=== PATIENT | female | born 1940 | race Caucasian/White ===

== ENCOUNTER 2019-09-05 17:02 | Inpatient (IN) | payer MEDICARE, BC ==
[2019-09-05] MEDS ORDERED: SODIUM CHLORIDE 0.9% 1,000 ML IV STA (17:35)
--- NOTE | 2019-09-05 17:39 | ED ---
Abdominal Pain HPI - General Chief Complaint: Abdominal Pain Stated Complaint: Jaundice Time Seen by Provider: 09/05/19 17:15 Source: patient, RN notes reviewed Mode of arrival: ambulatory Limitations: no limitations - History of Present Illness Initial Comments: This is a 79-year-old female presents emergency Department chief complaint of lower abdominal pain 3 days, jaundice. Patient states that essentially that she looks very yellow she noticed that her eyes were yellow, her skin. Patient denies any nausea vomiting denies any diarrhea but states that she's been constipated states it's narrow and beebe color. Patient states that she also noticed her urine has been very dark. She does not take any acetaminophen. Patient denies any fevers or chills no chest pain or shortness of breath. She does have a history of A. fib on Eliquis, metoprolol, diabetes on 3 medications and hypertension. Patient denies any prior abdominal surgeries. She states she was started on some new diabetic medication and which she is unsure what it is. Patient hasn't complains of dysuria no sick contacts. - Related Data Home Medications Medication Instructions Recorded Confirmed No Known Home Medications 09/05/19 09/05/19 Allergies Allergy/AdvReac Type Severity Reaction Status Date / Time Penicillins Allergy Unknown Verified 09/05/19 17:12 Childhood Review of Systems ROS Statement: Those systems with pertinent positive or pertinent negative responses have been documented in the HPI. ROS Other: All systems not noted in ROS Statement are negative. Past Medical History Past Medical History: Atrial Fibrillation, Diabetes Mellitus, Hyperlipidemia, Hypertension Additional Past Medical History / Comment(s): fluctuating sodium levels History of Any Multi-Drug Resistant Organisms: None Reported Past Surgical History: Tonsillectomy Additional Past Surgical History / Comment(s): cataracts, polyp removed from nose Past Psychological History: Anxiety Smoking Status: Never smoker Past Alcohol Use History: Rare Past Drug Use History: None Reported General Exam Limitations: no limitations General appearance: alert, in no apparent distress Head exam: Present: atraumatic, normocephalic, normal inspection Eye exam: Present: PERRL, EOMI, scleral icterus. Absent: normal appearance, conjunctival injection, periorbital swelling ENT exam: Present: mucous membranes moist. Absent: normal oropharynx (Yellowing under the tongue) Neck exam: Present: normal inspection, full ROM. Absent: tenderness, menin gismus, lymphadenopathy Respiratory exam: Present: normal lung sounds bilaterally. Absent: respiratory distress, wheezes, rales, rhonchi, stridor Cardiovascular Exam: Present: regular rate, normal rhythm, normal heart sounds. Absent: systolic murmur, diastolic murmur, rubs, gallop, clicks GI/Abdominal exam: Present: soft, tenderness (Minimal nonlocalized), normal bowel sounds. Absent: distended, guarding, rebound, rigid Neurological exam: Present: alert, oriented X3, CN II-XII intact Skin exam: Present: other ( icterus) Course Vital Signs 09/05/19 09/05/19 17:04 19:26 Temperature 98 F Pulse Rate 81 93 Respiratory 18 18 Rate Blood Pressure 185/78 191/97 O2 Sat by Pulse 98 97 Oximetry Medical Decision Making - Medical Decision Making 79-year-old female presents emergency from for jaundice, abdominal pain. Patient's found to have bilirubin of 6.8, mild transaminitis. Ultrasound was concerning for mass recommended CT. CT obtained shows evidence of suspicious pancreatic mass,, bile duct obstruction. I did discuss case with Dr. Jade and Dr. Grayson. Patient will be admitted for GI, surgery consult. - Lab Data Result diagrams: 09/05/19 18:15 09/05/19 18:15 Lab Results 09/05/19 09/05/19 09/05/19 Range/Units 18:15 18:15 18:15 WBC 3.7 L (3.8-10.6) k/uL RBC 3.82 (3.80-5.40) m/uL Hgb 11.7 (11.4-16.0) gm/dL Hct 36.4 (34.0-46.0) % MCV 95.4 (80.0-100.0) fL MCH 30.7 (25.0-35.0) pg MCHC 32.2 (31.0-37.0) g/dL RDW 13.8 (11.5-15.5) % Plt Count 122 L (150-450) k/uL Neutrophils % 68 % Lymphocytes % 22 % Monocytes % 7 % Eosinophils % 2 % Basophils % 1 % Neutrophils # 2.5 (1.3-7.7) k/uL Lymphocytes # 0.8 L (1.0-4.8) k/uL Monocytes # 0.3 (0-1.0) k/uL Eosinophils # 0.1 (0-0.7) k/uL Basophils # 0.0 (0-0.2) k/uL PT 12.1 H (9.0-12.0) sec INR 1.2 H (<1.2) APTT 24.8 (22.0-30.0) sec Sodium 134 L (137-145) mmol/L Potassium 3.4 L (3.5-5.1) mmol/L Chloride 101 (98-107) mmol/L Carbon Dioxide 25 (22-30) mmol/L Anion Gap 8 mmol/L BUN 14 (7-17) mg/dL Creatinine 0.65 (0.52-1.04) mg/dL Est GFR (CKD-EPI)AfAm >90 (>60 ml/min/1.73 sqM) Est GFR (CKD-EPI)NonAf 84 (>60 ml/min/1.73 sqM) Glucose 190 H (74-99) mg/dL Plasma Lactic Acid Tonny (0.7-2.0) mmol/L Calcium 9.1 (8.4-10.2) mg/dL Total Bilirubin 6.8 H (0.2-1.3) mg/dL AST 107 H (14-36) U/L ALT 116 H (4-34) U/L Alkaline Phosphatase 130 H (38-126) U/L Total Protein 7.8 (6.3-8.2) g/dL Albumin 3.9 (3.5-5.0) g/dL Amylase 68 (30-110) U/L Lipase 502 H (23-300) U/L Hepatitis A IgM Ab 09/05/19 09/05/19 Range/Units 18:15 18:28 WBC (3.8-10.6) k/uL RBC (3.80-5.40) m/uL Hgb (11.4-16.0) gm/dL Hct (34.0-46.0) % MCV (80.0-100.0) fL MCH (25.0-35.0) pg MCHC (31.0-37.0) g/dL RDW (11.5-15.5) % Plt Count (150-450) k/uL Neutrophils % % Lymphocytes % % Monocytes % % Eosinophils % % Basophils % % Neutrophils # (1.3-7.7) k/uL Lymphocytes # (1.0-4.8) k/uL Monocytes # (0-1.0) k/uL Eosinophils # (0-0.7) k/uL Basophils # (0-0.2) k/uL PT (9.0-12.0) sec INR (<1.2) APTT (22.0-30.0) sec Sodium (137-145) mmol/L Potassium (3.5-5.1) mmol/L Chloride (98-107) mmol/L Carbon Dioxide (22-30) mmol/L Anion Gap mmol/L BUN (7-17) mg/dL Creatinine (0.52-1.04) mg/dL Est GFR (CKD-EPI)AfAm (>60 ml/min/1.73 sqM) Est GFR (CKD-EPI)NonAf (>60 ml/min/1.73 sqM) Glucose (74-99) mg/dL Plasma Lactic Acid Tonny 1.3 (0.7-2.0) mmol/L Calcium (8.4-10.2) mg/dL Total Bilirubin (0.2-1.3) mg/dL AST (14-36) U/L ALT (4-34) U/L Alkaline Phosphatase (38-126) U/L Total Protein (6.3-8.2) g/dL Albumin (3.5-5.0) g/dL Amylase (30-110) U/L Lipase (23-300) U/L Hepatitis A IgM Ab NEGATIVE Disposition Clinical Impression: Pancreatic mass, Hyperbilirubinemia, Transaminitis Disposition: ADMITTED IP TO THIS HOSP Condition: Serious Referrals: Alis Lawler MD [Primary Care Provider] - 1-2 days
[2019-09-05 18:33] LABS: Basophils % (A) 1 %; Eosinophils # (A) 0.1 k/uL (0-0.7); Eosinophils % (A) 2 %; HCT 36.4 % (34.0-46.0); HGB 11.7 gm/dL (11.4-16.0); Lymphocytes # (A) 0.8 k/uL (1.0-4.8); Lymphocytes % (A) 22 %; MCH 30.7 pg (25.0-35.0); MCHC 32.2 g/dL (31.0-37.0); MCV 95.4 fL (80.0-100.0); Mean Platelet Volume 7.8; Monocytes # (A) 0.3 k/uL (0-1.0); Monocytes % (A) 7 %; Neutrophils # (A) 2.5 k/uL (1.3-7.7); Neutrophils % (A) 68 %; Platelet Count 122 k/uL (150-450); RBC 3.82 m/uL (3.80-5.40); RDW 13.8 % (11.5-15.5); WBC 3.7 k/uL (3.8-10.6)
[2019-09-05 18:41] LABS: ALT 116 U/L (4-34); AST 107 U/L (14-36); African American GFR (CKD) >90 (>60 ml/min/1.73 sqM); Albumin 3.9 g/dL (3.5-5.0); Alkaline Phosphatase 130 U/L (38-126); Amylase 68 U/L (30-110); Anion Gap 8 mmol/L; Blood Urea Nitrogen 14 mg/dL (7-17); Calcium 9.1 mg/dL (8.4-10.2); Carbon Dioxide 25 mmol/L (22-30); Chloride 101 mmol/L (98-107); Glucose 190 mg/dL (74-99); Non-African American GFR(CKD) 84 (>60 ml/min/1.73 sqM); Potassium 3.4 mmol/L (3.5-5.1); Sodium 134 mmol/L (137-145); Total Bilirubin 6.8 mg/dL (0.2-1.3); Total Protein 7.8 g/dL (6.3-8.2)
[2019-09-05 18:42] LABS: INR 1.2 (<1.2); Partial Thromboplastin Time 24.8 sec (22.0-30.0); Prothrombin Time 12.1 sec (9.0-12.0)
[2019-09-05 19:16] LABS: Hepatitis A Antibody IgM NEGATIVE
--- NOTE | 2019-09-05 19:29 | US ---
EXAMINATION TYPE: US liver DATE OF EXAM: 09/05/2019 COMPARISON: NONE CLINICAL HISTORY: Abdominal pain, jaundice. Abdominal pain x couple days. Jaundice. Hx HTN, Hyperlipi demia, diabetes mellitus. EXAM MEASUREMENTS: Liver Length: 18.8 cm Gallbladder Wall: 0.25 cm CBD: 1.85 cm Right Kidney: 12.2 x 5.8 x 4.9 cm Pancreas: Indistinct hypoechoic area is seen adjacent to pancreas posteriorly measurin.5 x 3.5 x 2.8 cm. Area appears to be slightly inferior to pancreas. Liver: Measures slightly enlarged. Gallbladder: Appears distended measuring 13.8 cm in length and 5.2 cm in width. Internal echoes are seen within the gallbladder. Evidence for sonographic Muller's sign: No CBD: Appears dilated. Right Kidney: Measures upper limits of normal versus slightly enlarged. Possible column of Geoff, I soechoic to slightly hyperechoic area seen measurin.1 x 2.2 x 2.0 cm. Visualized portion of pancreas is heterogeneous without mass or ductal dilatation. Visualized liver i s heterogeneously hyperechoic with moderate intrahepatic ductal dilatation. Evaluation for focal mass es suboptimal due to the heterogeneity. Increased cortical echogenicity right kidney without hydronep hrosis. Gallbladder has distended margins with small stones and/or gallbladder sludge filling the lum en. No abnormal surrounding fluid or wall thickening. Moderate to severe dilated common bile duct at 1.9 cm. Last few images show suspicious 4.5 x 2.8 x 3.5 cm hypoechoic mass immediately posterior to v ertical probable vascular structure in region of uncinate process of pancreas suspect abnormal mass o r adenopathy. No ascites seen on images saved. IMPRESSION: Moderate to severe intrahepatic and extra hepatic biliary dilatation suspect obstructing mass near duodenal ampulla. No definitive pancreatic ductal dilatation however. Advise contrast enhan garry CT to better evaluate and characterize.
--- NOTE | 2019-09-05 20:17 | CT ---
EXAMINATION TYPE: CT abdomen pelvis w con DATE OF EXAM: 09/05/2019 COMPARISON: None HISTORY: Diarrhea, abdominal pain and jaundice. CT DLP: 721.3 mGycm Automated exposure control for dose reduction was used. CONTRAST: Performed with IV Contrast, patient injected with 100 mL of Isovue 300. There is coarse interstitial density at the lung bases consistent with scarring and subsegmental atel ectasis. There is small hiatal hernia. Heart is enlarged. There is no pericardial effusion. There is small right pleural effusion. Gallbladder is moderately dilated. Gallbladder measures 5.3 cm in diameter. Spleen is intact. There i s a dilated common bile duct measures up to 1.5 cm. There is a 3 cm low-density area in the posterior aspect of the body of the pancreas suggestive of a mass. There is no adrenal mass. The pancreatic duct is not dilated. There is normal contrast opacification of the kidneys. There is no hydronephrosis. Ureters are not dilated. There is 1 cm cyst posterior lef t kidney. There is no retroperitoneal adenopathy. Bladder distends smoothly. There is no inguinal her emil. There is no free fluid in the pelvis. There is no sign of a bowel obstruction. Uterus appears no rmal. Lumbar spine is intact. There is no compression fracture. There is degenerative disc narrowing at L5-S1. I see no focal bone destruction. There is no mesenteric edema. There is no ascites or free air. IMPRESSION: Moderately severe dilation of the gallbladder with mild ectasia of the common bile duct and the intra hepatic bile ducts. No gallbladder wall thickening. Low density mass at the posterior aspect of the b mercy of the pancreas suspicious for tumor. Obstruction of the distal common bile duct is suspected. Fibrotic changes and subsegmental atelectasis at the lung bases. Atherosclerotic vascular disease.
[2019-09-05] MEDS ORDERED: HYDROmorphone 0.5 MG/0.5 ML SYRINGE IVP PRN (20:32)
[2019-09-05] MEDS ORDERED: NALOXONE 0.4 MG/ML 1 ML VIAL IV PRN (20:32)
[2019-09-05] MEDS ORDERED: ONDANSETRON 4 MG/2 ML VIAL IVP PRN (20:32)
[2019-09-05 21:40] LABS: Appearance,Urine Clear (Clear); Bilirubin,Urine Negative (Negative); Blood,Urine Negative (Negative); Color,Urine Yellow; Glucose,Urine (UA) Trace (Negative); Ketones,Urine Negative (Negative); Leukocyte Esterase,Urine Trace (Negative); Mucus,Urine Rare /hpf; Nitrite,Urine Negative (Negative); PH, Urine 5.5 (5.0-8.0); Protein,Urine Negative (Negative); RBC,Urine <1 /hpf (0-5); Specific Gravity,Urine 1.016 (1.001-1.035); Squamous Epithelial Cell,Urine 1 /hpf (0-4); Urobilinogen,Urine <2.0 mg/dL (<2.0); WBC,Urine 3 /hpf (0-5)
[2019-09-05 22:12] LABS: Glucose,Whole Blood 129 mg/dL (75-99)
[2019-09-05] MEDS: INSULIN ASPART (NovoLOG) 100 UNIT/ML VIAL SQ SCH (22:14)
[2019-09-05 23:49] LABS: Hepatitis B Core IgM Non-Reactive (Non-Reactive); Hepatitis B Surface Antigen Non-Reactive (Non-Reactive); Hepatitis C IgG Antibody Reactive (Non-Reactive)
[2019-09-06] MEDS: amLODIPine 10 MG TAB PO SCH (05:52)
[2019-09-06] MEDS: LEVOTHYROXINE 50 MCG TAB PO SCH (05:52)
[2019-09-06] MEDS: LISINOPRIL 20 MG TAB PO SCH (05:52)
[2019-09-06 07:16] LABS: Glucose,Whole Blood 164 mg/dL (75-99)
[2019-09-06] MEDS: INSULIN ASPART (NovoLOG) 100 UNIT/ML VIAL SQ SCH ×4 (08:47→21:04)
[2019-09-06] MEDS: PIOGLITAZONE 15 MG TAB PO SCH (08:48)
[2019-09-06] MEDS: METOPROLOL SUCCINATE (ER) 25 MG TAB.ER.24H PO SCH (08:48)
[2019-09-06] MEDS: glipiZIDE 5 MG TAB PO SCH ×2 (08:48→21:15)
[2019-09-06] MEDS: LINAGLIPTIN 5 MG TABLET PO SCH (08:50)
[2019-09-06] MEDS: POTASSIUM CHLORIDE ER 20 MEQ TAB.ER PO SCH (08:50)
[2019-09-06] MEDS: LORATADINE 10 MG TAB PO SCH (08:50)
[2019-09-06] MEDS: FLUTICASONE 50MCG/SPRAY NASAL 16GM EA NOSTRIL SCH (08:52)
[2019-09-06] MEDS ORDERED: APIXABAN 5 MG TAB PO SCH (09:00)
[2019-09-06] MEDS ORDERED: HYDROCORTISONE 2.5% RECTAL CREAM 30 GM TUBE RECTAL PRN (09:00)
[2019-09-06 11:09] LABS: Glucose,Whole Blood 225 mg/dL (75-99)
[2019-09-06] MEDS: ALPRAZolam 0.5 MG TAB PO PRN ×2 (12:51→21:15)
--- NOTE | 2019-09-06 13:29 | P.GSCN ---
History of Present Illness Consult date: 09/06/19 Reason for Consult: Pancreatic mass Requesting physician: Bravo Saha History of present illness: CHIEF COMPLAINT: Pancreatic mass HISTORY OF PRESENT ILLNESS: 79-year-old female who presented to the emergency room with the chief complaint of abdominal pain and jaundice. Patient had a computed tomography scan performed revealing pancreatic mass. Hence general surgery was consulted for further evaluation. PAST MEDICAL HISTORY: See list. PAST SURGICAL HISTORY: See list. SOCIAL HISTORY: No illicit drug use. REVIEW OF SYSTEMS: CONSTITUTIONAL: Denies fever or chills. HEENT: Denies blurred vision, vision changes, or eye pain. Denies hemoptysis CARDIOVASCULAR: Denies chest pain or pressure. RESPIRATORY: No shortness of breath. GASTROINTESTINAL: Refer to HPI for pertinent findings HEMATOLOGIC: Denies bleeding disorders. Reports dark urine. GENITOURINARY: Denies any blood in urine. SKIN: Denies pruitis. Denies rash. PHYSICAL EXAM: VITAL SIGNS: Reviewed. GENERAL: Well-developed in no acute distress. HEENT: No sclera icterus. Extraocular movements grossly intact. Moist buccal mucosa. Head is atraumatic, normocephalic. ABDOMEN: Soft. Nondistended. Mild pain upon palpation of right upper quadrant NEUROLOGIC: Alert and oriented. Cranial nerves II through XII grossly intact. LABORATORY DATA: WBC 3.7. Hemoglobin 11.7. Platelet count 122. Sodium 134. Potassium 3.4. Bilirubin 6.7. AST 107. ALT 116. Alkaline phosphatase 130. Amylase 60. Lipase 502. IMAGING: CT abdomen and pelvis: Moderately diffuse dilation of the gallbladder with mild ectasia of the common bile duct and intrahepatic bile duct. No gallbladder wall thickening. Low density mass at the posterior aspect of the body of the pancreas suspicious for tumor. Obstruction of the distal common bile duct is suspected ASSESSMENT: 1. Pancreatic mass 2. Obstructive jaundice PLAN: GI on consult. Await recommendations. Anticipate possible ERCP with stent placement No surgical intervention recommended at this facility Recommend further workup by a pancreatic specialist at a tertiary care center Nurse practitioner note has been reviewed by physician. Signing provider agrees with the documented findings, assessment, and plan of care. Past Medical History Past Medical History: Atrial Fibrillation, Diabetes Mellitus, Hyperlipidemia, Hypertension Additional Past Medical History / Comment(s): fluctuating sodium levels History of Any Multi-Drug Resistant Organisms: None Reported Past Surgical History: Tonsillectomy Additional Past Surgical History / Comment(s): cataracts left eye only, polyp removed from nose Past Anesthesia/Blood Transfusion Reactions: No Reported Reaction Past Psychological History: Anxiety Smoking Status: Never smoker Past Alcohol Use History: Rare Past Drug Use History: None Reported - Past Family History Mother Family Medical History: Myocardial Infarction ([place]) Brother(s) Additional Family Medical History / Comment(s): dies of lung cancer 2 brothers Medications and Allergies Home Medications Medication Instructions Recorded Confirmed Type ALPRAZolam [Xanax] 0.5 mg PO Q8H PRN 09/05/19 09/05/19 History Apixaban [Eliquis] 5 mg PO BID 09/05/19 09/05/19 History Atenolol [Tenormin] 50 mg PO DAILY 09/05/19 09/05/19 History Fluticasone Nasal Alsey [Flonase 2 sprays EA NOSTRIL DAILY 09/05/19 09/05/19 History Nasal Alsey] Hydrocortisone Pr Cream 1 applic RECTAL TID PRN 09/05/19 09/05/19 History [Proctosol-Hc 2.5%] Levothyroxine Sodium [Synthroid] 50 mcg PO DAILY 09/05/19 09/05/19 History Lisinopril 40 mg PO DAILY 09/05/19 09/05/19 History Loratadine [Claritin] 10 mg PO DAILY 09/05/19 09/05/19 History Metoprolol Succinate (ER) [Toprol 12.5 mg PO DAILY 09/05/19 09/05/19 History Xl] Pioglitazone [Actos] 15 mg PO DAILY 09/05/19 09/05/19 History Potassium Chloride ER [K-Dur 20] 20 meq PO DAILY 09/05/19 09/05/19 History amLODIPine [Norvasc] 10 mg PO DAILY 09/05/19 09/05/19 History glipiZIDE XL [Glucotrol Xl] 10 mg PO DAILY 09/05/19 09/05/19 History sitaGLIPtin [Januvia] 100 mg PO DAILY 09/05/19 09/05/19 History Allergies Allergy/AdvReac Type Severity Reaction Status Date / Time Penicillins Allergy Unknown Verified 09/05/19 22:16 Childhood Surgical - Exam Vital Signs Temp Pulse Resp BP Pulse Ox 98 F 81 18 185/78 98 09/05/19 17:04 09/05/19 17:04 09/05/19 17:04 09/05/19 17:04 09/05/19 17:04 Results - Labs 09/05/19 18:15 09/05/19 18:15 Abnormal Lab Results - Last 24 Hours (Table) 09/05/19 09/05/19 09/05/19 Range/Units 18:15 18:15 18:15 WBC 3.7 L (3.8-10.6) k/uL Plt Count 122 L (150-450) k/uL Lymphocytes # 0.8 L (1.0-4.8) k/uL PT 12.1 H (9.0-12.0) sec INR 1.2 H (<1.2) Sodium 134 L (137-145) mmol/L Potassium 3.4 L (3.5-5.1) mmol/L Glucose 190 H (74-99) mg/dL POC Glucose (mg/dL) (75-99) mg/dL Total Bilirubin 6.8 H (0.2-1.3) mg/dL AST 107 H (14-36) U/L ALT 116 H (4-34) U/L Alkaline Phosphatase 130 H (38-126) U/L Lipase 502 H (23-300) U/L Urine Glucose (UA) (Negative) Ur Leukocyte Esterase (Negative) Urine Mucus (None) /hpf Hep C IgG Ab (Non-Reactive) 09/05/19 09/05/19 09/05/19 Range/Units 18:15 21:10 22:10 WBC (3.8-10.6) k/uL Plt Count (150-450) k/uL Lymphocytes # (1.0-4.8) k/uL PT (9.0-12.0) sec INR (<1.2) Sodium (137-145) mmol/L Potassium (3.5-5.1) mmol/L Glucose (74-99) mg/dL POC Glucose (mg/dL) 129 H (75-99) mg/dL Total Bilirubin (0.2-1.3) mg/dL AST (14-36) U/L ALT (4-34) U/L Alkaline Phosphatase (38-126) U/L Lipase (23-300) U/L Urine Glucose (UA) Trace H (Negative) Ur Leukocyte Esterase Trace H (Negative) Urine Mucus Rare H (None) /hpf Hep C IgG Ab Reactive H (Non-Reactive) 09/06/19 09/06/19 Range/Units 07:13 11:06 WBC (3.8-10.6) k/uL Plt Count (150-450) k/uL Lymphocytes # (1.0-4.8) k/uL PT (9.0-12.0) sec INR (<1.2) Sodium (137-145) mmol/L Potassium (3.5-5.1) mmol/L Glucose (74-99) mg/dL POC Glucose (mg/dL) 164 H 225 H (75-99) mg/dL Total Bilirubin (0.2-1.3) mg/dL AST (14-36) U/L ALT (4-34) U/L Alkaline Phosphatase (38-126) U/L Lipase (23-300) U/L Urine Glucose (UA) (Negative) Ur Leukocyte Esterase (Negative) Urine Mucus (None) /hpf Hep C IgG Ab (Non-Reactive) Diabetes panel 09/05/19 Range/Units 18:15 Sodium 134 L (137-145) mmol/L Potassium 3.4 L (3.5-5.1) mmol/L Chloride 101 (98-107) mmol/L Carbon Dioxide 25 (22-30) mmol/L BUN 14 (7-17) mg/dL Creatinine 0.65 (0.52-1.04) mg/dL Glucose 190 H (74-99) mg/dL Calcium 9.1 (8.4-10.2) mg/dL AST 107 H (14-36) U/L ALT 116 H (4-34) U/L Alkaline Phosphatase 130 H (38-126) U/L Total Protein 7.8 (6.3-8.2) g/dL Albumin 3.9 (3.5-5.0) g/dL Calcium panel 09/05/19 Range/Units 18:15 Calcium 9.1 (8.4-10.2) mg/dL Albumin 3.9 (3.5-5.0) g/dL Pituitary panel 09/05/19 Range/Units 18:15 Sodium 134 L (137-145) mmol/L Potassium 3.4 L (3.5-5.1) mmol/L Chloride 101 (98-107) mmol/L Carbon Dioxide 25 (22-30) mmol/L BUN 14 (7-17) mg/dL Creatinine 0.65 (0.52-1.04) mg/dL Glucose 190 H (74-99) mg/dL Calcium 9.1 (8.4-10.2) mg/dL Adrenal panel 09/05/19 Range/Units 18:15 Sodium 134 L (137-145) mmol/L Potassium 3.4 L (3.5-5.1) mmol/L Chloride 101 (98-107) mmol/L Carbon Dioxide 25 (22-30) mmol/L BUN 14 (7-17) mg/dL Creatinine 0.65 (0.52-1.04) mg/dL Glucose 190 H (74-99) mg/dL Calcium 9.1 (8.4-10.2) mg/dL Total Bilirubin 6.8 H (0.2-1.3) mg/dL AST 107 H (14-36) U/L ALT 116 H (4-34) U/L Alkaline Phosphatase 130 H (38-126) U/L Total Protein 7.8 (6.3-8.2) g/dL Albumin 3.9 (3.5-5.0) g/dL
[2019-09-06 17:45] LABS: Glucose,Whole Blood 148 mg/dL (75-99)
[2019-09-06 20:27] LABS: Glucose,Whole Blood 118 mg/dL (75-99)
--- NOTE | 2019-09-06 23:07 | CONS ---
CONSULTATION DATE OF DICTATION: 09/06/2019 REASON FOR CONSULTATION: Obstructive jaundice. HISTORY OF PRESENT ILLNESS: The patient is an 79-year-old pleasant white female who was admitted to the hospital yesterday when she noted yellowish discoloration of her skin for the last 2 weeks' duration. In fact, her daughter noticed this and brought her to the emergency room. She also noted her urine to be dark and stools clear-colored for the last one-week duration. She denies any abdominal pain, reports no nausea, vomiting. She lost about 12 pounds in the last 2 weeks' duration. She reports no abdominal pain. No nausea, vomiting. No rectal bleeding or melena. PAST MEDICAL HISTORY: Her past medical history is significant for hypertension, hyperlipidemia, diabetes mellitus, history of atrial fibrillation, on Eliquis. PAST SURGICAL HISTORY: Tonsillectomy, cataract and nasal polyp removal. SOCIAL HISTORY: No smoking or alcohol use. FAMILY HISTORY: Unremarkable. REVIEW OF SYSTEMS: CARDIOPULMONARY: She denies any chest pain or shortness of breath. GENITOURINARY: No dysuria or hematuria. MUSCULOSKELETAL: Unremarkable. SKIN: Unremarkable other than yellowish discoloration ENDOCRINE: Unremarkable. PSYCHIATRIC: Unremarkable. NEUROLOGY: Unremarkable. ENT/VISION: Unremarkable. CONSTITUTIONAL: Weight loss of 12 pounds. No fever, chills, night sweats. MEDICATIONS: Medications at home include Januvia, Glucotrol, Norvasc, K-Dur, Actos, Claritin, Toprol, Synthroid, Lisinopril, Flonase, Tenormin, Eliquis and Xanax. PHYSICAL EXAMINATION: She appears comfortable. No apparent distress. Vital signs are stable. Blood pressure 143/73, pulse rate 82 and afebrile. HEENT examination unremarkable. Conjunctivae pink. Sclerae anicteric. Oral cavity no lesions. NECK: No JVD or lymph node enlargement. CHEST: Clear to auscultation. HEART: Regular rate and rhythm. ABDOMEN: Soft. Bowel sounds are positive. No organomegaly. EXTREMITIES: No pedal edema. SKIN: No rashes. NEUROLOGIC: Alert and oriented x3. No focal deficits. LABS/IMAGING: Labs from yesterday show WBC 3.7, hemoglobin 11.5, platelets 152,000. INR is 1.2. T- bilirubin 6.8. AST and ALT are 107 and 116, respectively. Alkaline phosphatase 130. Lipase is 502. Hepatitis serologies showed a hep C IgG antibody positive. COVID-[address] of the abdomen and pelvis done in the emergency room showed dilated common bile duct measuring 1.5 cm in diameter, moderate dilation of the gallbladder, and there was a 3 cm low density area in the posterior aspect of the body of the pancreas suggestive of a mass. IMPRESSION: 1. This is a lady who presented to the hospital with painless jaundice with a bilirubin of 6 and elevated alkaline phosphatase and a CT scan showing a 3 cm mass in the posterior aspect of the body of the pancreas with a dilated common bile duct. 2. History of atrial fibrillation, on Eliquis. 3. History of diabetes mellitus. 4. Positive hepatitis C antibody. Will request HCV RNA by PCR. 5. History of hypertension. 6. Hypothyroidism. RECOMMENDATIONS: 1. Hold Eliquis. 2. Will proceed with an ERCP tomorrow. I discussed with the patient as well as her daughter risks, benefits and complications of the procedure, and she is agreeable to it. 3. Repeat labs in the morning. 4. Obtain HCV RNA by PCR to evaluate positive hepatitis C antibody and we will follow with you closely. Thank you for this consultation. MMODL / IJN: [id number] /
[2019-09-07] MEDS: LEVOTHYROXINE 50 MCG TAB PO SCH (05:53)
[2019-09-07] MEDS: amLODIPine 10 MG TAB PO SCH (05:53)
[2019-09-07 07:08] LABS: Glucose,Whole Blood 135 mg/dL (75-99)
[2019-09-07] MEDS: PIOGLITAZONE 15 MG TAB PO SCH (08:10)
[2019-09-07] MEDS: LISINOPRIL 20 MG TAB PO SCH (08:11)
[2019-09-07] MEDS: LORATADINE 10 MG TAB PO SCH (08:11)
[2019-09-07] MEDS: LINAGLIPTIN 5 MG TABLET PO SCH (08:11)
[2019-09-07] MEDS: POTASSIUM CHLORIDE ER 20 MEQ TAB.ER PO SCH (08:11)
[2019-09-07] MEDS: METOPROLOL SUCCINATE (ER) 25 MG TAB.ER.24H PO SCH (08:11)
[2019-09-07] MEDS: INSULIN ASPART (NovoLOG) 100 UNIT/ML VIAL SQ SCH ×4 (08:13→21:32)
[2019-09-07] MEDS: FLUTICASONE 50MCG/SPRAY NASAL 16GM EA NOSTRIL SCH (08:15)
[2019-09-07] MEDS: glipiZIDE 5 MG TAB PO SCH ×2 (08:15→21:35)
[2019-09-07] MEDS ORDERED: METOPROLOL TARTRATE 12.5 MG TAB PO STA (09:56)
--- NOTE | 2019-09-07 09:58 | P.HPIM ---
History of Present Illness H&P Date: 09/06/19 Chief Complaint: Jaundiced History of presenting complaint: This is a very pleasant [address] Jelly Lawler. Chronic stable medical conditions include atrial fibrillation, diabetes, hypertension, hyperlipidemia and anxiety. Patient noticed her body to becoming yellow jaundice for about 3 days. Denies any nausea vomiting. Appetite has been plus minus. Patient has lost about 12 pounds in last 3-4 months. Bowel movements a day, white. Urine is dark brown in color. Denies any fever and chills no abdominal pain. Decided to come to the ER. Computed tomography scan did show a mass around the gallbladder site. With a dilated gallbladder. GI and surgery were consulted for the same. Review of systems: GEN.: Tired EYES: Yellow HEENT: None NECK: None RESPIRATORY: None CARDIOVASCULAR: None GASTROINTESTINAL: [Pale stools GENITOURINARY: None MUSCULOSKELETAL: None LYMPHATICS: None HEMATOLOGICAL: None PSYCHIATRY: Anxiety but controlled NEUROLOGICAL: None Past medical history to include: Atrial fibrillation, diabetes, hyperlipidemia, hypertension, anxiety Social history: Does not smoke. Alcohol rarely. Lives by herself. Physical examination: VITAL SIGNS: 98, 81, 18, 185/78, 98% on room air GENERAL: BMI 23.7, laying in bed, comfortable. Yellow discoloration of the skin EYES: [Pupils equal. Conjunctiva yellow l. HEENT: External appearance of nose and ears normal, oral cavity grossly normal. NECK: JVD not raised; masses not palpable. HEART: First and second heart sounds are normal; no edema. LUNGS: Respiratory rate normal; clear to auscultation. ABDOMEN: Soft, nontender, liver spleen not palpable, no masses palpable. PSYCH: Alert and oriented x3; mood and affect normal. NEUROLOGICAL: Cranial nerves grossly intact; no facial asymmetry, power and sensation grossly intact. LYMPHATICS: No lymph nodes palpable in the axilla and neck INVESTIGATIONS, reviewed in the clinical context: White count 3.7 hemoglobin 11.7 platelets 122 pro time 12.1 potassium 3.4 creatinine 0.65 Total bilirubin 6.8 AST 107 ALT 116 Coronavirus PCR-not detected Hepatitis A IgM antibody negative, hepatitis B surface antigen, hepatitis B core IgM antibody, both negative Hepatitis C IgG antibody reactive Liver ultrasound-gallbladder distended with small stones and/or gallbladder sludge. Moderate to severely dilated common bile duct at 1.9 cm. Suspect pancreatic mass. Computed tomography scan of abdomen and pelvis with contrast-moderate to severely dilated gallbladder with some ectasia of the common bile duct and intrahepatic bile ducts. Low-density mass in the posterior aspect of the body of the pancreas suspicious for tumor. Obstruction of the distal common bile duct suspected Assessment: -Pancreatic mass causing obstruction of the distal common bile duct causing hyperbilirubinemia. Suspect underlying malignancy -Diabetes mellitus type 2 on oral hypoglycemic -Essential hypertension -Hyperlipidemia -Hypokalemia Plan: Both GI and general surgery were consulted. Patient will need at least an ERCP. And possibly an endoscopic ultrasound. We'll discuss with GI. Home medications resumed. Care was discussed with the patient. Questions were answered. Past Medical History Past Medical History: Atrial Fibrillation, Diabetes Mellitus, Hyperlipidemia, Hypertension Additional Past Medical History / Comment(s): fluctuating sodium levels History of Any Multi-Drug Resistant Organisms: None Reported Past Surgical History: Tonsillectomy Additional Past Surgical History / Comment(s): cataracts left eye only, polyp removed from nose Past Anesthesia/Blood Transfusion Reactions: No Reported Reaction Past Psychological History: Anxiety Smoking Status: Never smoker Past Alcohol Use History: Rare Past Drug Use History: None Reported - Past Family History Mother Family Medical History: Myocardial Infarction ([place]) Brother(s) Additional Family Medical History / Comment(s): dies of lung cancer 2 brothers Medications and Allergies Home Medications Medication Instructions Recorded Confirmed Type ALPRAZolam [Xanax] 0.5 mg PO Q8H PRN 09/05/19 09/05/19 History Apixaban [Eliquis] 5 mg PO BID 09/05/19 09/05/19 History Atenolol [Tenormin] 50 mg PO DAILY 09/05/19 09/05/19 History Fluticasone Nasal [place] [Flonase 2 sprays EA NOSTRIL DAILY 09/05/19 09/05/19 History Nasal [place]] Hydrocortisone Pr Cream 1 applic RECTAL TID PRN 09/05/19 09/05/19 History [Proctosol-Hc 2.5%] Levothyroxine Sodium [Synthroid] 50 mcg PO DAILY 09/05/19 09/05/19 History Lisinopril 40 mg PO DAILY 09/05/19 09/05/19 History Loratadine [Claritin] 10 mg PO DAILY 09/05/19 09/05/19 History Metoprolol Succinate (ER) [Toprol 12.5 mg PO DAILY 09/05/19 09/05/19 History Xl] Pioglitazone [Actos] 15 mg PO DAILY 09/05/19 09/05/19 History Potassium Chloride ER [K-Dur 20] 20 meq PO DAILY 09/05/19 09/05/19 History amLODIPine [Norvasc] 10 mg PO DAILY 09/05/19 09/05/19 History glipiZIDE XL [Glucotrol Xl] 10 mg PO DAILY 09/05/19 09/05/19 History sitaGLIPtin [Januvia] 100 mg PO DAILY 09/05/19 09/05/19 History Allergies Allergy/AdvReac Type Severity Reaction Status Date / Time Penicillins Allergy Unknown Verified 09/05/19 22:16 Childhood Physical Exam Vitals: Vital Signs Temp Pulse Pulse Resp BP BP BP 09/06/19 08:59 75 189/81 09/06/19 06:00 97.6 F 82 18 198/93 09/05/19 22:50 18 09/05/19 22:16 97.4 F L 72 18 190/82 09/05/19 21:34 97.9 F 73 18 185/89 09/05/19 20:53 98.1 F 84 18 186/85 09/05/19 19:26 93 18 191/97 09/05/19 17:04 98 F 81 18 185/78 Pulse Ox 09/06/19 08:59 09/06/19 06:00 95 09/05/19 22:50 09/05/19 22:16 95 09/05/19 21:34 97 09/05/19 20:53 96 09/05/19 19:26 97 09/05/19 17:04 98 Intake and Output 09/05/19 09/06/19 09/06/19 22:59 06:59 14:59 Intake Total 400 350 Balance 400 350 Intake: Oral 400 350 Other: # Voids 1 2 Weight 66.723 kg Results CBC & Chem 7: 09/05/19 18:15 09/05/19 18:15 Labs: Abnormal Lab Results - Last 24 Hours (Table) 09/05/19 09/05/19 09/05/19 Range/Units 18:15 18:15 18:15 WBC 3.7 L (3.8-10.6) k/uL Plt Count 122 L (150-450) k/uL Lymphocytes # 0.8 L (1.0-4.8) k/uL PT 12.1 H (9.0-12.0) sec INR 1.2 H (<1.2) Sodium 134 L (137-145) mmol/L Potassium 3.4 L (3.5-5.1) mmol/L Glucose 190 H (74-99) mg/dL POC Glucose (mg/dL) (75-99) mg/dL Total Bilirubin 6.8 H (0.2-1.3) mg/dL AST 107 H (14-36) U/L ALT 116 H (4-34) U/L Alkaline Phosphatase 130 H (38-126) U/L Lipase 502 H (23-300) U/L Urine Glucose (UA) (Negative) Ur Leukocyte Esterase (Negative) Urine Mucus (None) /hpf Hep C IgG Ab (Non-Reactive) 09/05/19 09/05/19 09/05/19 Range/Units 18:15 21:10 22:10 WBC (3.8-10.6) k/uL Plt Count (150-450) k/uL Lymphocytes # (1.0-4.8) k/uL PT (9.0-12.0) sec INR (<1.2) Sodium (137-145) mmol/L Potassium (3.5-5.1) mmol/L Glucose (74-99) mg/dL POC Glucose (mg/dL) 129 H (75-99) mg/dL Total Bilirubin (0.2-1.3) mg/dL AST (14-36) U/L ALT (4-34) U/L Alkaline Phosphatase (38-126) U/L Lipase (23-300) U/L Urine Glucose (UA) Trace H (Negative) Ur Leukocyte Esterase Trace H (Negative) Urine Mucus Rare H (None) /hpf Hep C IgG Ab Reactive H (Non-Reactive) 09/06/19 09/06/19 Range/Units 07:13 11:06 WBC (3.8-10.6) k/uL Plt Count (150-450) k/uL Lymphocytes # (1.0-4.8) k/uL PT (9.0-12.0) sec INR (<1.2) Sodium (137-145) mmol/L Potassium (3.5-5.1) mmol/L Glucose (74-99) mg/dL POC Glucose (mg/dL) 164 H 225 H (75-99) mg/dL Total Bilirubin (0.2-1.3) mg/dL AST (14-36) U/L ALT (4-34) U/L Alkaline Phosphatase (38-126) U/L Lipase (23-300) U/L Urine Glucose (UA) (Negative) Ur Leukocyte Esterase (Negative) Urine Mucus (None) /hpf Hep C IgG Ab (Non-Reactive) Thrombosis Risk Factor Assmnt - Choose All That Apply Any of the Below Risk Factors Present?: No Other Risk Factors: No Other congenital or acquired thrombophilia - If yes, enter type in comment: No Thrombosis Risk Factor Assessment Level: Very Low Risk
[2019-09-07] MEDS ORDERED: INDOMETHACIN 50MG SUPPOSITORY RECTAL ONE (10:00)
[2019-09-07] MEDS ORDERED: LEVOFLOXACIN 500MG-D5W PMX 500 MG in DEXTROSE/WATER 1 100ML.BAG IVPB SCH (10:00)
--- NOTE | 2019-09-07 10:07 | P.PN ---
Subjective Progress Note Date: 09/07/19 CHIEF COMPLAINT: Pancreatic mass HISTORY OF PRESENT ILLNESS: Patient examined this morning at the bedside with Dr. Jade. She states her abdominal pain is tolerable. She is scheduled for ERCP today with Dr. Jenkins PHYSICAL EXAM: VITAL SIGNS: Reviewed. GENERAL: Well-developed in no acute distress. HEENT: Bilateral sclera icterus. Extraocular movements grossly intact. Moist buccal mucosa. Head is atraumatic, normocephalic. ABDOMEN: Soft. Nondistended. Mild pain upon palpation of right upper quadrant NEUROLOGIC: Alert and oriented. Cranial nerves II through XII grossly intact. ASSESSMENT: 1. Pancreatic mass 2. Obstructive jaundice PLAN: GI on consult. Patient scheduled for ERCP today with Dr. Jenkins Await CA 19-9 No surgical intervention recommended at this facility Recommend further workup by a pancreatic specialist at a tertiary care center Nurse practitioner note has been reviewed by physician. Signing provider agrees with the documented findings, assessment, and plan of care. Objective - Vital Signs Vital signs: Vital Signs Temp 98.7 F 09/07/19 05:12 Pulse 63 09/07/19 05:12 Resp 16 09/07/19 05:12 BP 199/82 09/07/19 05:12 Pulse Ox 96 09/07/19 05:12 Intake & Output 09/06/19 09/07/19 09/07/19 18:59 06:59 18:59 Intake Total 1180 Balance 1180 Intake: Oral 1180 Other: # Voids 3 2 - Labs CBC & Chem 7: 09/05/19 18:15 09/05/19 18:15 Labs: Abnormal Lab Results - Last 24 Hours (Table) 09/06/19 09/06/19 09/06/19 Range/Units 11:06 17:34 20:26 POC Glucose (mg/dL) 225 H 148 H 118 H (75-99) mg/dL 09/07/19 Range/Units 07:05 POC Glucose (mg/dL) 135 H (75-99) mg/dL
[2019-09-07 11:21] LABS: Glucose,Whole Blood 162 mg/dL (75-99)
[2019-09-07 11:40] LABS: ALT 98 U/L (4-34); AST 92 U/L (14-36); African American GFR (CKD) >90 (>60 ml/min/1.73 sqM); Albumin 3.2 g/dL (3.5-5.0); Alkaline Phosphatase 110 U/L (38-126); Anion Gap 7 mmol/L; Blood Urea Nitrogen 13 mg/dL (7-17); Carbon Dioxide 29 mmol/L (22-30); Chloride 99 mmol/L (98-107); Glucose 157 mg/dL (74-99); Non-African American GFR(CKD) 90 (>60 ml/min/1.73 sqM); Potassium 3.4 mmol/L (3.5-5.1); Sodium 135 mmol/L (137-145); Total Bilirubin 7.1 mg/dL (0.2-1.3)
[2019-09-07] MEDS: LISINOPRIL-HCTZ 20-12.5 MG 1 EACH TAB PO SCH ×2 (12:57→21:35)
[2019-09-07] MEDS ORDERED: PHYTONADIONE ORAL 5 MG/5 ML ORAL.SYRG PO STA (16:33)
--- NOTE | 2019-09-07 17:24 | PN ---
PROGRESS NOTE DATE OF DICTATION: 09/07/2019 The patient is an 79-year-old pleasant white female admitted to the hospital with painless jaundice and CT scan showed biliary dilation and 3 cm pancreatic mass. She is scheduled for an ERCP tomorrow. Her last was yesterday morning. She denies any symptoms, reports no abdominal pain. No nausea, vomiting. No fever, chills or night sweats. PHYSICAL EXAMINATION: She appears comfortable. Blood pressure 198/88, pulse rate 74, temperature 98. HEENT examination unremarkable. Conjunctivae pink. Sclerae icteric. Oral cavity no lesions. NECK: No JVD or lymph node enlargement. CHEST: Clear to auscultation. HEART: Regular rate and rhythm. ABDOMEN: Soft. Bowel sounds are positive. No organomegaly. EXTREMITIES: No pedal edema. SKIN: No rashes. NEUROLOGIC: Alert and oriented x3. No focal deficits. LABS: Labs from today show bilirubin is 7.1. AST and ALT are 92 and 98, respectively. Alkaline phosphatase is 110. CA 19-9 is 979. IMPRESSION: 1. Painless obstructive jaundice. CT scan showing 3 cm pancreatic body mass and biliary ductal dilation. CA 19-9 elevated at 979. Most likely we are dealing with pancreatic neoplasm. 2. Atrial fibrillation, on Eliquis, currently on hold. RECOMMENDATIONS: Will proceed with ERCP tomorrow. She understands the risks, benefits and complications of the procedure. Thank you for this consultation. MMODL / IJN: [id number] /
[2019-09-07] MEDS ORDERED: POTASSIUM CHLORIDE ER 20 MEQ TAB.ER PO STA (18:03)
--- NOTE | 2019-09-07 20:53 | P.PN ---
Progress Note - Text Progress Note Date: 09/07/19 Chief Complaint: Jaundiced History of presenting complaint: This is a very pleasant [address] Jelly Lawler. Chronic stable medical conditions include atrial fibrillation, diabetes, hypertension, hyperlipidemia and anxiety. Patient noticed her body to becoming yellow jaundice for about 3 days. Denies any nausea vomiting. Appetite has been plus minus. Patient has lost about 12 pounds in last 3-4 months. Bowel movements a day, white. Urine is dark brown in color. Denies any fever and chills no abdominal pain. Decided to come to the ER. Computed tomography scan did show a mass around the gallbladder site. With a dilated gallbladder. GI and surgery were consulted for the same. Today-laying bed. Comfortable. ERCP postponed because patient had received eliquis yesterday. Review of systems: Was done for constitutional, cardiovascular, GI, pulmonary. relevant finding as above Active Medications Alprazolam (Xanax) 0.5 mg PO Q8H PRN PRN Reason: Anxiety Last Admin: 09/06/19 21:15 Dose: 0.5 mg Documented by: Amlodipine Besylate (Norvasc) 10 mg PO DAILY [facility] Last Admin: 09/07/19 05:53 Dose: 10 mg Documented by: Fluticasone Propionate (Flonase Nasal [place]) 2 spray EA NOSTRIL DAILY [facility] Last Admin: 09/07/19 08:15 Dose: Not Given Documented by: Glipizide (Glucotrol) 5 mg PO BID [facility] Last Admin: 09/07/19 08:15 Dose: 5 mg Documented by: Lisinopril/HCTZ (Zestoretic 20-12.5) 1 each PO BID [facility] Last Admin: 09/07/19 12:57 Dose: 1 each Documented by: Hydrocortisone (Proctosol-Hc 2.5%) 1 applic RECTAL TID PRN PRN Reason: Hemorrhoids Hydromorphone HCl (Dilaudid) 0.5 mg IVP Q3HR PRN PRN Reason: Moderate Pain Levofloxacin 500 mg/ IV (Solution) 100 mls @ 100 mls/hr IVPB ONCE ONE Stop: 09/08/19 06:59 Indomethacin (Indocin) 100 mg RECTAL ONCE ONE Stop: 09/08/19 06:01 Insulin Aspart (Novolog) 0 unit SQ ACHS [facility]; Protocol Last Admin: 09/07/19 18:25 Dose: 1 unit Documented by: Levothyroxine Sodium (Synthroid) 50 mcg PO DAILY@0630 [facility] Last Admin: 09/07/19 05:53 Dose: 50 mcg Documented by: Linagliptin (Tradjenta) 5 mg PO DAILY [facility] Last Admin: 09/07/19 08:11 Dose: 5 mg Documented by: Loratadine (Claritin) 10 mg PO DAILY [facility] Last Admin: 09/07/19 08:11 Dose: 10 mg Documented by: Metoprolol Tartrate (Lopressor) 25 mg PO BID [facility] Naloxone HCl (Narcan) 0.2 mg IV Q2M PRN PRN Reason: Opioid Reversal Ondansetron HCl (Zofran) 4 mg IVP Q8HR PRN PRN Reason: Nausea And Vomiting Phytonadione (Vitamin K Oral) 10 mg PO ONCE STA Stop: 09/07/19 16:34 Pioglitazone HCl (Actos) 15 mg PO DAILY [facility] Last Admin: 09/07/19 08:10 Dose: 15 mg Documented by: Potassium Chloride (K-Dur 20) 20 meq PO DAILY [facility] Last Admin: 09/07/19 08:11 Dose: 20 meq Documented by: Physical examination: VITAL SIGNS: 98, 69, 18, 187/65, 97% on room air GENERAL: laying in bed, comfortable. Yellow discoloration of the skin EYES: [Pupils equal. Conjunctiva yellow l. HEENT: External appearance of nose and ears normal, oral cavity grossly normal. NECK: JVD not raised; masses not palpable. HEART: First and second heart sounds are normal; no edema. LUNGS: Respiratory rate normal; clear to auscultation. ABDOMEN: Soft, nontender, liver spleen not palpable, no masses palpable. PSYCH: Alert and oriented x3; mood and affect normal. INVESTIGATIONS, reviewed in the clinical context: Potassium 3.4 CA 19-19 antigen 979.3 Previous testing: White count 3.7 hemoglobin 11.7 platelets 122 pro time 12.1 potassium 3.4 creatinine 0.65 Total bilirubin 6.8 AST 107 ALT 116 Coronavirus PCR-not detected Hepatitis A IgM antibody negative, hepatitis B surface antigen, hepatitis B core IgM antibody, both negative Hepatitis C IgG antibody reactive Liver ultrasound-gallbladder distended with small stones and/or gallbladder sludge. Moderate to severely dilated common bile duct at 1.9 cm. Suspect pancreatic mass. Computed tomography scan of abdomen and pelvis with contrast-moderate to severely dilated gallbladder with some ectasia of the common bile duct and intrahepatic bile ducts. Low-density mass in the posterior aspect of the body of the pancreas suspicious for tumor. Obstruction of the distal common bile duct suspected Assessment: -Pancreatic mass causing obstruction of the distal common bile duct causing hyperbilirubinemia. Suspect underlying malignancy-pending ERCP -Diabetes mellitus type 2 on oral hypoglycemic -Essential hypertension with urgency -Hyperlipidemia -Hypokalemia Plan: Care was discussed with the patient. Patient scheduled for ERCP tomorrow morning.
[2019-09-07] MEDS: METOPROLOL TARTRATE 25 MG TAB PO SCH (21:35)
[2019-09-07] MEDS: ALPRAZolam 0.5 MG TAB PO PRN (21:35)
[2019-09-08] MEDS ORDERED: LEVOFLOXACIN 500MG-D5W PMX 500 MG in DEXTROSE/WATER 1 100ML.BAG IVPB ONE (06:00)
[2019-09-08] MEDS ORDERED: INDOMETHACIN 50MG SUPPOSITORY RECTAL ONE (06:00)
[2019-09-08] MEDS: LEVOTHYROXINE 50 MCG TAB PO SCH (06:04)
[2019-09-08] MEDS ORDERED: KETAMINE 10 MG/ML 20 ML VIAL ONE (07:05)
[2019-09-08] MEDS ORDERED: GLYCOPYRROLATE 0.2 MG/ML 2 ML VIAL ONE (07:05)
[2019-09-08] MEDS ORDERED: PROPOFOL 10 MG/ML 20 ML VIAL IV ONE (07:05)
[2019-09-08] MEDS ORDERED: MIDAZOLAM 2 MG/2 ML VIAL ONE (07:05)
[2019-09-08] MEDS ORDERED: fentaNYL (PF) 50 MCG/ML 2 ML AMP ONE (07:05)
[2019-09-08] MEDS ORDERED: LIDOCAINE 1% INJ 10MG/ML (20 ML MDV) ONE (07:05)
[2019-09-08] MEDS ORDERED: IV FLUID CONTINUATION 500 ML IV ONE (07:05)
[2019-09-08] MEDS: INSULIN ASPART (NovoLOG) 100 UNIT/ML VIAL SQ SCH ×4 (07:06→21:15)
[2019-09-08] MEDS ORDERED: IOPAMIDOL-300 50ML BTL MISCELLANE ONE (07:23)
[2019-09-08 07:35] LABS: INR 1.2 (<1.2)
[2019-09-08 07:53] LABS: Glucose,Whole Blood 148 mg/dL (75-99)
--- NOTE | 2019-09-08 07:57 | P.PCN ---
Date of Procedure: 09/08/19 Procedure(s) Performed: Brief history: Patient is a 79 year-old pleasant lady scheduled for an ERCP as part of evaluation of painless jaundice of one-week duration. She was noted to have elevated bili at 6 and mild elevation of serum transaminases. CT of abdomen showed dilated biliary system with a 3 cm mass in the head of the pancreas suspicious for pancreas neoplasm. CA-19-99 was elevated at 1953. She is scheduled for an ERCP for biliary drainage and brush cytology. Procedure performed: ERCP with brush cytology and CBD stent placement Preoperative diagnoses: Painless obstructive jaundice/3 cm pancreatic mass IV sedation per anesthesia: Procedure: After informed consent was obtained from the patient and after the risks benefits and complications including bleeding perforation and pancreatitis explained in detail the patient was brought into the endoscopy unit. The patient was placed in prone position and IV conscious sedation was administered by anesthesia under continuous monitoring. The Olympus side-viewing duodenoscope was then inserted into the mouth and esophagus intubated without any difficulty. The scope was gradually advanced into the stomach and duodenum. The major papilla was identified without any difficulty. Initial cannulation resulted in opacification of the common bile duct. Upon injection of the dye there was an irregular distal common bile duct stricture measuring 2 cm in length with proximal biliary dilation. At this time a guidewire was passed into the biliary system and by cytology was obtained of the distal common bile duct stricture. Falling this a 7-[place] 5 cm [place] stent was placed into the proximal CBD with good biliary drainage. Following this I attempted cannulating the pancreatic duct and was not successful. At this time the procedure was terminated. Patient tolerated the procedure well. Impression: 1. 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 PD could not be cannulated Recommendations: The findings of this examination were discussed with the patient as well as a family. Discussed with patient's daughter also. At this time will start her on a clear liquid diet. Repeat labs in the morning. She can be discharged home tomorrow with an outpatient follow-up in 5 days. Based on the brush cytology results will decide if she needs will need endoscopic ultrasound of the pancreas.
[2019-09-08 08:02] LABS: Glucose,Whole Blood 102 mg/dL (75-99)
[2019-09-08] MEDS: POTASSIUM CHLORIDE ER 20 MEQ TAB.ER PO SCH (08:11)
[2019-09-08] MEDS: METOPROLOL TARTRATE 25 MG TAB PO SCH ×2 (08:11→21:15)
[2019-09-08] MEDS: amLODIPine 10 MG TAB PO SCH (08:11)
[2019-09-08] MEDS: FLUTICASONE 50MCG/SPRAY NASAL 16GM EA NOSTRIL SCH (08:11)
[2019-09-08] MEDS: LORATADINE 10 MG TAB PO SCH (08:11)
[2019-09-08] MEDS: LISINOPRIL-HCTZ 20-12.5 MG 1 EACH TAB PO SCH ×2 (08:24→21:15)
[2019-09-08] MEDS: PIOGLITAZONE 15 MG TAB PO SCH (08:24)
[2019-09-08] MEDS: LINAGLIPTIN 5 MG TABLET PO SCH (08:24)
[2019-09-08] MEDS: glipiZIDE 5 MG TAB PO SCH ×2 (08:24→21:15)
[2019-09-08 11:25] LABS: Glucose,Whole Blood 188 mg/dL (75-99)
--- NOTE | 2019-09-08 12:55 | P.PN ---
Subjective Progress Note Date: 09/08/19 CHIEF COMPLAINT: Pancreatic mass HISTORY OF PRESENT ILLNESS: Patient examined this morning at the bedside with Dr. Jade. She states her abdominal pain is tolerable. She is s/p ERCP with stent placement. PHYSICAL EXAM: VITAL SIGNS: Reviewed. GENERAL: Well-developed in no acute distress. HEENT: Bilateral sclera icterus. Extraocular movements grossly intact. Moist buccal mucosa. Head is atraumatic, normocephalic. ABDOMEN: Soft. Nondistended. Mild pain upon palpation of right upper quadrant NEUROLOGIC: Alert and oriented. Cranial nerves II through XII grossly intact. ASSESSMENT: 1. Pancreatic mass 2. Obstructive jaundice PLAN: GI on consult. No surgical intervention recommended at this facility Recommend further workup by a pancreatic specialist at a tertiary care center We will sign off. Please re-consult if needed Nurse practitioner note has been reviewed by physician. Signing provider agrees with the documented findings, assessment, and plan of care. Objective - Vital Signs Vital signs: Vital Signs Temp 98.3 F 09/08/19 04:38 Pulse 62 09/08/19 08:05 Resp 16 09/08/19 08:05 BP 186/85 09/08/19 08:05 Pulse Ox 96 09/08/19 08:05 Intake & Output 09/07/19 09/08/19 09/08/19 18:59 06:59 18:59 Intake Total 100 200 Balance 100 200 Intake: IV 200 Intake, IV Titration 100 Amount Levofloxacin 500Mg-D5w 100 Pmx 500 mg In Dextrose/ Water 1 100ml.bag @ 100 mls/hr IVPB ONCE ONE Rx#: [id number] Other: # Voids 3 1 - Labs CBC & Chem 7: 09/05/19 18:15 09/07/19 11:00 Labs: Abnormal Lab Results - Last 24 Hours (Table) 09/07/19 09/07/19 09/07/19 Range/Units 05:48 17:10 20:30 INR (<1.2) POC Glucose (mg/dL) 148 H 102 H (75-99) mg/dL CA 19-9 Antigen 979.3 H (0.0-34.9) U/mL 09/08/19 09/08/19 Range/Units 05:42 11:23 INR 1.2 H (<1.2) POC Glucose (mg/dL) 188 H (75-99) mg/dL CA 19-9 Antigen (0.0-34.9) U/mL
--- NOTE | 2019-09-08 13:17 | FL ---
EXAMINATION TYPE: FL ERCP DATE OF EXAM: 09/08/2019 CLINICAL HISTORY: ERCP with stent placement. Fluoroscopy documentation. TECHNIQUE: Fluoroscopy. COMPARISON: None. FINDINGS: Fluoroscopic guidance was provided during procedure performed by Dr. Jenkins. A total of 0. 45 minutes of fluoroscopic time was utilized during the procedure and 5 spot images were acquired dur ing stent placement after cannulation and retrograde opacification of the common bile duct during ERC P. IMPRESSION: As Above.
[2019-09-08 16:34] LABS: Glucose,Whole Blood 241 mg/dL (75-99)
--- NOTE | 2019-09-08 18:20 | P.PN ---
Progress Note - Text Progress Note Date: 09/08/19 Chief Complaint: Jaundiced History of presenting complaint: This is a very pleasant [address] Jelly Lawler. Chronic stable medical conditions include atrial fibrillation, diabetes, hypertension, hyperlipidemia and anxiety. Patient noticed her body to becoming yellow jaundice for about 3 days. Denies any nausea vomiting. Appetite has been plus minus. Patient has lost about 12 pounds in last 3-4 months. Bowel movements a day, white. Urine is dark brown in color. Denies any fever and chills no abdominal pain. Decided to come to the ER. Computed tomography scan did show a mass around the gallbladder site. With a dilated gallbladder. GI and surgery were consulted for the same. Today-patient underwent ERCP today. CBD stricture was found. Stent was placed.. Brushings were done. Postprocedure no pain. Review of systems: Was done for constitutional, cardiovascular, GI, pulmonary. relevant finding as above Active Medications Alprazolam (Xanax) 0.5 mg PO Q8H PRN PRN Reason: Anxiety Last Admin: 09/07/19 21:35 Dose: 0.5 mg Documented by: Amlodipine Besylate (Norvasc) 10 mg PO DAILY [facility] Last Admin: 09/08/19 08:11 Dose: 10 mg Documented by: Fluticasone Propionate (Flonase Nasal [place]) 2 spray EA NOSTRIL DAILY [facility] Last Admin: 09/08/19 08:11 Dose: 2 spray Documented by: Glipizide (Glucotrol) 5 mg PO BID [facility] Last Admin: 09/08/19 08:24 Dose: 5 mg Documented by: Lisinopril/HCTZ (Zestoretic 20-12.5) 1 each PO BID [facility] Last Admin: 09/08/19 08:24 Dose: 1 each Documented by: Hydrocortisone (Proctosol-Hc 2.5%) 1 applic RECTAL TID PRN PRN Reason: Hemorrhoids Hydromorphone HCl (Dilaudid) 0.5 mg IVP Q3HR PRN PRN Reason: Moderate Pain Insulin Aspart (Novolog) 0 unit SQ ACHS [facility]; Protocol Last Admin: 09/08/19 17:17 Dose: 3 unit Documented by: Levothyroxine Sodium (Synthroid) 50 mcg PO DAILY@0630 [facility] Last Admin: 09/08/19 06:04 Dose: 50 mcg Documented by: Linagliptin (Tradjenta) 5 mg PO DAILY [facility] Last Admin: 09/08/19 08:24 Dose: 5 mg Documented by: Loratadine (Claritin) 10 mg PO DAILY [facility] Last Admin: 09/08/19 08:11 Dose: 10 mg Documented by: Metoprolol Tartrate (Lopressor) 25 mg PO BID [facility] Last Admin: 09/08/19 08:11 Dose: 25 mg Documented by: Naloxone HCl (Narcan) 0.2 mg IV Q2M PRN PRN Reason: Opioid Reversal Ondansetron HCl (Zofran) 4 mg IVP Q8HR PRN PRN Reason: Nausea And Vomiting Pioglitazone HCl (Actos) 15 mg PO DAILY [facility] Last Admin: 09/08/19 08:24 Dose: 15 mg Documented by: Potassium Chloride (K-Dur 20) 20 meq PO DAILY [facility] Last Admin: 09/08/19 08:11 Dose: 20 meq Documented by: Physical examination: VITAL SIGNS: 97.7, 57, 16, 177/74, 96% on room air GENERAL: laying in bed, comfortable. Yellow discoloration of the skin EYES: [Pupils equal. Conjunctiva yellow l. HEENT: External appearance of nose and ears normal, oral cavity grossly normal. NECK: JVD not raised; masses not palpable. HEART: First and second heart sounds are normal; no edema. LUNGS: Respiratory rate normal; clear to auscultation. ABDOMEN: Soft, nontender, liver spleen not palpable, no masses palpable. PSYCH: Alert and oriented x3; mood and affect normal. INVESTIGATIONS, reviewed in the clinical context: Potassium 3.4 CA 19-19 antigen 979.3 Previous testing: White count 3.7 hemoglobin 11.7 platelets 122 pro time 12.1 potassium 3.4 creatinine 0.65 Total bilirubin 6.8 AST 107 ALT 116 Coronavirus PCR-not detected Hepatitis A IgM antibody negative, hepatitis B surface antigen, hepatitis B core IgM antibody, both negative Hepatitis C IgG antibody reactive Liver ultrasound-gallbladder distended with small stones and/or gallbladder slu dge. Moderate to severely dilated common bile duct at 1.9 cm. Suspect pancreatic mass. Computed tomography scan of abdomen and pelvis with contrast-moderate to severely dilated gallbladder with some ectasia of the common bile duct and intrahepatic bile ducts. Low-density mass in the posterior aspect of the body of the pancreas suspicious for tumor. Obstruction of the distal common bile duct suspected Assessment: -Pancreatic mass causing obstruction of the distal common bile duct causing hyperbilirubinemia. -Diabetes mellitus type 2 on oral hypoglycemic -Essential hypertension with urgency -Hyperlipidemia -Hypokalemia -Status post ERCP. CBD stent placed. Brushings done. Plan: Check pancreatic labs in the morning. Continue current medications. Discussed with the patient.
[2019-09-08] MEDS: ALPRAZolam 0.5 MG TAB PO PRN (19:29)
[2019-09-08 20:51] LABS: Glucose,Whole Blood 175 mg/dL (75-99)
[2019-09-09] MEDS: LEVOTHYROXINE 50 MCG TAB PO SCH (06:00)
[2019-09-09 07:08] LABS: Glucose,Whole Blood 138 mg/dL (75-99)
[2019-09-09] MEDS: LORATADINE 10 MG TAB PO SCH (08:06)
[2019-09-09] MEDS: LINAGLIPTIN 5 MG TABLET PO SCH (08:06)
[2019-09-09] MEDS: amLODIPine 10 MG TAB PO SCH (08:06)
[2019-09-09] MEDS: METOPROLOL TARTRATE 25 MG TAB PO SCH (08:06)
[2019-09-09] MEDS: glipiZIDE 5 MG TAB PO SCH (08:06)
[2019-09-09] MEDS: LISINOPRIL-HCTZ 20-12.5 MG 1 EACH TAB PO SCH (08:06)
[2019-09-09] MEDS: INSULIN ASPART (NovoLOG) 100 UNIT/ML VIAL SQ SCH ×2 (08:07→12:49)
[2019-09-09] MEDS: POTASSIUM CHLORIDE ER 20 MEQ TAB.ER PO SCH (08:07)
[2019-09-09] MEDS: FLUTICASONE 50MCG/SPRAY NASAL 16GM EA NOSTRIL SCH (08:07)
[2019-09-09] MEDS: PIOGLITAZONE 15 MG TAB PO SCH (08:07)
[2019-09-09 08:47] LABS: ALT 88 U/L (4-34); AST 84 U/L (14-36); African American GFR (CKD) >90 (>60 ml/min/1.73 sqM); Albumin 3.5 g/dL (3.5-5.0); Alkaline Phosphatase 131 U/L (38-126); Anion Gap 8 mmol/L; Blood Urea Nitrogen 17 mg/dL (7-17); Calcium 9.5 mg/dL (8.4-10.2); Carbon Dioxide 29 mmol/L (22-30); Chloride 95 mmol/L (98-107); Glucose 154 mg/dL (74-99); Non-African American GFR(CKD) 83 (>60 ml/min/1.73 sqM); Sodium 132 mmol/L (137-145); Total Bilirubin 5.1 mg/dL (0.2-1.3); Total Protein 7.4 g/dL (6.3-8.2)
[2019-09-09 08:50] LABS: Basophils % (A) 1 %; Eosinophils # (A) 0.1 k/uL (0-0.7); Eosinophils % (A) 3 %; HCT 38.2 % (34.0-46.0); HGB 12.5 gm/dL (11.4-16.0); Lymphocytes % (A) 27 %; MCH 31.9 pg (25.0-35.0); MCHC 32.7 g/dL (31.0-37.0); MCV 97.6 fL (80.0-100.0); Mean Platelet Volume 8.2; Monocytes # (A) 0.3 k/uL (0-1.0); Monocytes % (A) 8 %; Neutrophils # (A) 2.2 k/uL (1.3-7.7); Neutrophils % (A) 60 %; Platelet Count 112 k/uL (150-450); RBC 3.92 m/uL (3.80-5.40); RDW 14.1 % (11.5-15.5); WBC 3.6 k/uL (3.8-10.6)
--- NOTE | 2019-09-09 10:33 | PN ---
PROGRESS NOTE DATE OF DICTATION: September 09, 2019 Patient is an 79-year-old pleasant white female admitted to the hospital with painless obstructive jaundice and a 3 cm pancreatic head lesion. CA99 was 953. She had an ERCP done yesterday that showed a distal common bile duct irregular stricture measuring 2 cm in length, status post breast cytology and CBD stent placement. The patient is doing well today. She denies any symptoms. PHYSICAL EXAMINATION: Appears comfortable, no apparent distress. VITAL SIGNS: Stable. Blood pressure is 130/86, pulse rate 82 per minute and afebrile. HEENT: Examination unremarkable, conjunctivae are pink, sclerae anicteric. Oral cavity no lesions. NECK: No JVD or lymph node enlargement. CHEST: Clear to auscultation. HEART: Regular rate and rhythm. ABDOMEN: Soft. Bowel sounds are positive. No organomegaly. EXTREMITIES: No pedal edema. SKIN no rashes, but yellowish discoloration noted. NEUROLOGIC: Alert and oriented x3. No focal deficits. LABS: Done from today show T-bilirubin is down to 5.1. AST and ALT at 84 and 88 respectively. Alkaline phosphatase 131. HCV RNA was positive. IMPRESSION: 1. Obstructive jaundice secondary to distal common bile duct stricture/pancreatic head mass elevated CA 99, status post ERCP yesterday that showed distal common bile duct stricture with proximal biliary dilation, status post CBD stent placement. The patient doing better today. 2. Positive Hep C antibody and HCV RNA that are positive consistent with chronic hepatitis C infection. The patient has no prior history of chronic liver disease. 3. Elevated CA 99. RECOMMENDATION: 1. Patient to be discharged home today. 2. Outpatient followup on Wednesday at 10 a.m. on September 12. 3. Advance diet as tolerated. Thank you for this consultation. MMODL / IJN: [id number] /
[2019-09-09] MEDS ORDERED: METOPROLOL TARTRATE 25 MG TAB PO SCH (11:30)
[2019-09-09] MEDS ORDERED: PRAZOSIN 1 MG CAP PO SCH (11:30)
[2019-09-09 11:33] LABS: Glucose,Whole Blood 300 mg/dL (75-99)
[2019-09-09 11:46] VITALS: RESP 17; TEMP 97.9
[2019-09-09 14:32] VITALS: BP 128/62; PULSE 68
--- NOTE | 2019-09-09 17:31 | P.DS ---
Providers Date of admission: 09/05/19 21:03 Expected date of discharge: 09/09/19 Attending physician: Mike Abrams Consults: 09/05/19 20:33 Consult Physician Urgent Consulting Provider: Hakeem Jade Consult Reason/Comments: Pain. Past Do you want consulting provider notified?: Yes Consult Physician Urgent Consulting Provider: Nette Jenkins Consult Reason/Comments: Pancreatic mass, hyperbilirubinemia Do you want consulting provider notified?: Yes Primary care physician: Alis Lawler [facility] Course: Chief Complaint: Jaundiced History of presenting complaint: This is a very pleasant [address] Jelly Lawler. Chronic stable medical conditions include atrial fibrillation, diabetes, hypertension, hyperlipidemia and anxiety. Patient noticed her body to becoming yellow jaundice for about 3 days. Denies any nausea vomiting. Appetite has been plus minus. Patient has lost about 12 pounds in last 3-4 months. Bowel movements a day, white. Urine is dark brown in color. Denies any fever and chills no abdominal pain. Decided to come to the ER. Computed tomography scan did show a mass around the gallbladder site. With a dilated gallbladder. GI and surgery were consulted for the same.underwent ERCP today. CBD stricture was found. Stent was placed.. Brushings were done. Today-comfortable No abdominal pain. Tolerated diet. Cleared by GI for discharge. Blood pressure was running high. Increase the dose of Lopressor and prazosin was added. Repeat blood pressure was better controlled. Discussed with the patient. On the nurse. Patient follow with GI as an outpatient. Discussion and discharge planning more than 35 minutes Consultation: Dr. Lizeth Jenkins from GI Dr. Jade from general surgery Physical examination: VITAL SIGNS: 97.9, 52, 17, 128/62, 95% on room air GENERAL: laying in bed, comfortable. Yellow discoloration of the skin EYES: [Pupils equal. Conjunctiva yellow l. HEENT: External appearance of nose and ears normal, oral cavity grossly normal. NECK: JVD not raised; masses not palpable. HEART: First and second heart sounds are normal; no edema. LUNGS: Respiratory rate normal; clear to auscultation. ABDOMEN: Soft, nontender, liver spleen not palpable, no masses palpable. PSYCH: Alert and oriented x3; mood and affect normal. INVESTIGATIONS, reviewed in the clinical context: Potassium 4 CA 19-19 antigen 979.3 Previous testing: White count 3.7 hemoglobin 11.7 platelets 122 pro time 12.1 potassium 3.4 creatinine 0.65 Total bilirubin 6.8 AST 107 ALT 116 Coronavirus PCR-not detected Hepatitis A IgM antibody negative, hepatitis B surface antigen, hepatitis B core IgM antibody, both negative Hepatitis C IgG antibody reactive Liver ultrasound-gallbladder distended with small stones and/or gallbladder sludge. Moderate to severely dilated common bile duct at 1.9 cm. Suspect pancreatic mass. Computed tomography scan of abdomen and pelvis with contrast-moderate to se verely dilated gallbladder with some ectasia of the common bile duct and intrahepatic bile ducts. Low-density mass in the posterior aspect of the body of the pancreas suspicious for tumor. Obstruction of the distal common bile duct suspected Assessment: -Pancreatic mass causing obstruction of the distal common bile duct causing hyperbilirubinemia. -Diabetes mellitus type 2 on oral hypoglycemic -Essential hypertension with urgency -Hyperlipidemia -Hypokalemia -Status post ERCP. CBD stent placed. Brushings done. Disposition: Home Patient Condition at Discharge: Undetermined Plan - Discharge Summary Discharge Rx Participant: Yes New Discharge Prescriptions: New Metoprolol Tartrate [Lopressor] 50 mg PO BID #60 tab Prazosin [Minipress] 2 mg PO TID #90 cap Lisinopril-Hctz 20-12.5 mg [Zestoretic 20-12.5] 1 each PO BID #60 tab Continue Hydrocortisone Pr Cream [Proctosol-Hc 2.5%] 1 applic RECTAL TID PRN PRN Reason: Hemorrhoids Pioglitazone [Actos] 15 mg PO DAILY sitaGLIPtin [Januvia] 100 mg PO DAILY glipiZIDE XL [Glucotrol XL] 10 mg PO DAILY Levothyroxine Sodium [Synthroid] 50 mcg PO DAILY Fluticasone Nasal [place] [Flonase Nasal [place]] 2 sprays EA NOSTRIL DAILY Apixaban [Eliquis] 5 mg PO BID amLODIPine [Norvasc] 10 mg PO DAILY ALPRAZolam [Xanax] 0.5 mg PO Q8H PRN PRN Reason: Anxiety Discontinued Potassium Chloride ER [K-Dur 20] 20 meq PO DAILY Metoprolol Succinate (ER) [Toprol Xl] 12.5 mg PO DAILY Loratadine [Claritin] 10 mg PO DAILY Lisinopril 40 mg PO DAILY Atenolol [Tenormin] 50 mg PO DAILY Discharge Medication List ALPRAZolam [Xanax] 0.5 mg PO Q8H PRN 09/05/19 [History] Apixaban [Eliquis] 5 mg PO BID 09/05/19 [History] Fluticasone Nasal [place] [Flonase Nasal [place]] 2 sprays EA NOSTRIL DAILY 09/05/19 [History] Hydrocortisone Pr Cream [Proctosol-Hc 2.5%] 1 applic RECTAL TID PRN 09/05/19 [History] Levothyroxine Sodium [Synthroid] 50 mcg PO DAILY 09/05/19 [History] Pioglitazone [Actos] 15 mg PO DAILY 09/05/19 [History] amLODIPine [Norvasc] 10 mg PO DAILY 09/05/19 [History] glipiZIDE XL [Glucotrol XL] 10 mg PO DAILY 09/05/19 [History] sitaGLIPtin [Januvia] 100 mg PO DAILY 09/05/19 [History] Lisinopril-Hctz 20-12.5 mg [Zestoretic 20-12.5] 1 each PO BID #60 tab 09/09/19 [Rx] Metoprolol Tartrate [Lopressor] 50 mg PO BID #60 tab 09/09/19 [Rx] Prazosin [Minipress] 2 mg PO TID #90 cap 09/09/19 [Rx] Follow up Appointment(s)/Referral(s): Nette Jenkins MD [STAFF PHYSICIAN] - 09/13/19 (at office) Alis Lawler MD [Primary Care Provider] - 1-2 days Patient Instructions/Handouts: Metoprolol (By mouth), Prazosin (By mouth), Lisinopril/Hydrochlorothiazide (By mouth), Hypertension (DC), Jaundice (DC), ERCP (Endoscopic Retrograde Cholangiopancreatography) (DC) Discharge Disposition: HOME SELF-CARE
--- NOTE | 2019-09-12 13:17 | CDI ---
Documentation Clarification Form Date: 09/12/19 From: Solange Pulido Phone: If you have a question about this query, please contact Debra Harris, [employer] Operator at [phone] between 8am and 5pm. Admit Date: 09/05/19 Discharge Date: 09/09/19 Patient Name: SO RUBIO Visit Number: [id number] ATTENTION: The Clinical Documentation Specialists (CDI) and [facility] Coding Staff appreciate your assistance in clarifying documentation. Please respond to the clarification below the line at the bottom and electronically sign. The CDI & [facility] Coding staff will review the response and follow-up if needed. Please note: Queries are made part of the Legal Health Record. If you have any questions, please contact the author of this message via ITS. Dear Dr. Mike Abarms, History of atrial Fibrillation is documented in the ED Note, H&P, both consults, three progress notes and the DS. History/Risk Factors: FTH, HLD, DM Type II, anxiety Clinical Indicators: Patient has hx of atrial fib and takes Eliquis at home EKG/telemetry: none Treatment: Eliquis 5 mg po BID In your professional opinion, can you please clarify the type of Atrial Fibrillation, if known? Chronic Permanent Paroxysmal Persistent, longstanding Persistent, other Persistent, permanent Other, please specify Unable to determine Unable to determine MTDD
== END 2019-09-09 16:30 | disposition home or self-care (01) | DRG 438 ==
LOC: EC 17:02 → 5NMEDONC 21:03
PROVIDERS: ADMIT Hospitalist; ATTEND Hospitalist
PROC: 0FD98ZX Extraction of Common Bile Duct, Via Natural or Artificial Opening Endoscopic, Diagnostic (ICD-10-PCS; principal; 2019-09-08 07:00)
PROC: 0F798DZ Dilation of Common Bile Duct with Intraluminal Device, Via Natural or Artificial Opening Endoscopic (ICD-10-PCS; principal; 2019-09-08 07:00)
DX: K86.9 Disease of pancreas, unspecified (principal); K83.1 Obstruction of bile duct; E11.9 Type 2 diabetes mellitus without complications; B18.2 Chronic viral hepatitis C; I48.91 Unspecified atrial fibrillation; I16.0 Hypertensive urgency; Z11.59 Encounter for screening for other viral diseases; E78.5 Hyperlipidemia, unspecified; I10 Essential (primary) hypertension; E03.9 Hypothyroidism, unspecified; E87.6 Hypokalemia; K59.00 Constipation, unspecified; F41.9 Anxiety disorder, unspecified; Z79.84 Long term (current) use of oral hypoglycemic drugs; Z79.890 Hormone replacement therapy; Z79.01 Long term (current) use of anticoagulants; Z79.899 Other long term (current) drug therapy; Z87.09 Personal history of other diseases of the respiratory system; Z98.890 Other specified postprocedural states; Z98.42 Cataract extraction status, left eye; Z88.0 Allergy status to penicillin; Z82.49 Family history of ischemic heart disease and other diseases of the circulatory system; Z80.1 Family history of malignant neoplasm of trachea, bronchus and lung
CPT/HCPCS: 36415; 43261; 43274; 74177; 74330; 76705; 80053; 80074; 81001; 82150; 83605; 83690; 85025; 85610; 85730; 86301; 87521; 87635; 88104; 88305; 96360; 96361; 99285

== ENCOUNTER → 2019-09-29 | Outpatient (CLI) | payer MEDICARE, BC ==
[2019-09-29 13:27] LABS: African American GFR (CKD) >90 (>60 ml/min/1.73 sqM); Blood Urea Nitrogen 19 mg/dL (7-17); Non-African American GFR(CKD) 82 (>60 ml/min/1.73 sqM)
--- NOTE | 2019-09-29 14:31 | CT ---
EXAMINATION TYPE: CT pancreas biphase DATE OF EXAM: 09/29/2019 COMPARISON: 09/05/2019 INDICATION: pancreatic mass DLP: 506.6 mGycm, Automated exposure control for dose reduction was used. CONTRAST: 100 mL of Isovue 370. Study performed TECHNIQUE: Axial images were obtained from above the diaphragm to the iliac crest. Studies without an d with contrast. Delayed images were obtained through the pancreas. Biphasic contrast evaluation of t he pancreas was performed. FINDINGS: Pancreas: There is ill-defined hypodensity posterior to the superior mesenteric vein near t he head of the pancreas. This covers approximately one third of the vein near the confluence at the p ortal vein. This area is less well-defined on the arterial phase of contrast. Hypodensity does remain within this region however. The superior mesenteric artery close approximation throughout its course . A stent is present in the common bile duct within the head of the pancreas. Limited CT sections are obtained the lung bases. The lung bases are clear. CT ABDOMEN: Liver: Normal Spleen: Normal Pancreas: As above Adrenal glands: The adrenal glands are normal. Gallbladder: Fluid surrounds the gallbladder. Correlate for acute cholecystitis. Kidneys: No masses are evident. No hydronephrosis is present. No cysts are present. Delayed images were obtained through the kidneys, which remain unremarkable. Aorta: Vascular calcification is within the aorta. Inferior vena cava: Normal. IMPRESSIONS: 1. Ill-defined hypodense mass within the uncinate process has the superior mesenteric artery running alongside throughout its course and covers approximately one third of the portal vein confluence mor e anteriorly. Hypodense mass size suspicious for neoplasm measures 3.0 x 3.0 cm.
== END | disposition home or self-care (01) ==
LOC: RADCTMAIN 12:44
PROVIDERS: ATTEND Internal Medicine Gastroenterology
DX: K86.89 Other specified diseases of pancreas (principal); Z01.89 Encounter for other specified special examinations
CPT/HCPCS: 82565; 84520; 36415; 74160; Q9967

== ENCOUNTER 2019-10-30 06:05 | Day surgery (SDC) | payer MEDICARE, BC ==
[2019-10-26 15:23] VITALS: BMI 23.6
[~2019-10-30 06:05] MED LIST: ACETAMINOPHEN TAB 500 MG TAB PO ONE; HEPARIN SODIUM,PORCINE 5,000 UNIT/ML 1 ML VIAL SQ ONE; Pre Op ABX Message 1 EACH MISC MISCELLANE ONE
[2019-10-30] MEDS ORDERED: LACTATED RINGERS 1,000 ML IV ONE ×3 (07:07→09:10)
[2019-10-30 07:08] LABS: Glucose,Whole Blood 225 mg/dL (75-99)
[2019-10-30] MEDS ORDERED: LIDOCAINE 1% (10MG/ML) FOR IV START INTRADERMA ONE (07:08)
[2019-10-30] MEDS ORDERED: ONDANSETRON 4 MG/2 ML VIAL IVP ONE (07:17)
[2019-10-30] MEDS ORDERED: MIDAZOLAM 2 MG/2 ML VIAL ONE (07:52)
[2019-10-30] MEDS ORDERED: fentaNYL (PF) 50 MCG/ML 2 ML AMP ONE (07:52)
[2019-10-30] MEDS ORDERED: PROPOFOL 10 MG/ML 20 ML VIAL IV ONE (07:52)
[2019-10-30] MEDS ORDERED: LIDOCAINE 1% INJ 10MG/ML (20 ML MDV) ONE (07:52)
--- NOTE | 2019-10-30 07:55 | P.GSHP ---
History of Present Illness H&P Date: 10/30/19 Chief Complaint: Pancreatic cancer Patient here today for Port-A-Cath placement. Diagnosed with pancreatic cancer recently. Relatively asymptomatic currently. She has not had a port in the past. We'll be starting her chemotherapy in the near future. Past Medical History Past Medical History: Atrial Fibrillation, Cancer, Diabetes Mellitus, Hyperlipidemia, Hypertension, Thyroid Disorder Additional Past Medical History / Comment(s): fluctuating sodium levels, pancreatic cancer., states hx of fx left leg-states larger than right leg, swelling right ankle. , States she was supposed to start insulin, but has not started yet., states fluid restriction to 60 oz daily. History of Any Multi-Drug Resistant Organisms: None Reported Past Surgical History: Tonsillectomy Additional Past Surgical History / Comment(s): cataract left eye , polyp removed from nose, ERCP with CBD stent. Past Anesthesia/Blood Transfusion Reactions: No Reported Reaction Past Psychological History: Anxiety Smoking Status: Never smoker Past Alcohol Use History: None Reported Past Drug Use History: None Reported - Past Family History Mother Family Medical History: Myocardial Infarction ([place]) Brother(s) Family Medical History: Cancer Additional Family Medical History / Comment(s): dies of lung cancer 2 brothers Medications and Allergies Home Medications Medication Instructions Recorded Confirmed Type ALPRAZolam [Xanax] 0.5 mg PO Q8H PRN 09/05/19 10/30/19 History Apixaban [Eliquis] 5 mg PO BID 09/05/19 10/30/19 History Levothyroxine Sodium [Synthroid] 50 mcg PO DAILY 09/05/19 10/30/19 History Pioglitazone [Actos] 15 mg PO DAILY 09/05/19 10/30/19 History amLODIPine [Norvasc] 10 mg PO DAILY 09/05/19 10/30/19 History glipiZIDE XL [Glucotrol XL] 10 mg PO DAILY 09/05/19 10/30/19 History sitaGLIPtin [Januvia] 100 mg PO DAILY 09/05/19 10/30/19 History Lisinopril-Hctz 20-12.5 mg 1 each PO DAILY 10/26/19 10/30/19 History [Zestoretic 20-12.5] Metoprolol Tartrate [Lopressor] 50 mg PO DAILY 10/26/19 10/30/19 History Potassium Chloride [K-Tab ER] 20 meq PO DAILY 10/26/19 10/30/19 History Prazosin [Minipress] 1 mg PO DAILY 10/26/19 10/30/19 History Allergies Allergy/AdvReac Type Severity Reaction Status Date / Time adhesive tape Allergy Unknown red skin Verified 10/30/19 07:46 latex Allergy Unknown Rash/Hives Verified 10/30/19 07:46 Latex, Natural Rubber Allergy Unknown Rash/Hives Verified 10/30/19 07:46 Penicillins Allergy Unknown Verified 10/30/19 07:46 Childhood Surgical - Exam Vital Signs Temp Pulse Resp BP Pulse Ox 97.5 F L 64 16 178/77 98 10/30/19 06:53 10/30/19 06:53 10/30/19 06:53 10/30/19 06:53 10/30/19 06:53 Physical exam: General: Well-developed, well-nourished HEENT: Normocephalic, sclerae nonicteric Abdomen: Nontender, nondistended Extremities: No edema Neuro: Alert and oriented Results - Labs Abnormal Lab Results - Last 24 Hours (Table) 10/30/19 Range/Units 07:05 POC Glucose (mg/dL) 225 H (75-99) mg/dL Assessment and Plan (1) Pancreatic cancer Narrative/Plan: Will proceed with Port-A-Cath placement at this time. Risks of bleeding, infection, DVT, pneumothorax, catheter malfunction, anesthesia related complications were discussed. The patient understands and wishes to proceed. Current Visit: Yes Status: Acute Code(s): C25.9 - MALIGNANT NEOPLASM OF PANCREAS, UNSPECIFIED SNOMED Code(s): 840491777
[2019-10-30] MEDS ORDERED: SODIUM CHLORIDE 0.9% 100 ML with ceFAZolin 1,000 MG IV ONE ×2 (07:56)
[2019-10-30] MEDS ORDERED: LIDOCAINE (PF) 10 MG/ML 2 ML VIAL SQ ONE ×2 (08:22)
[2019-10-30] MEDS ORDERED: HEPARIN SODIUM,PORCINE 100 UNIT/ML 5 ML VIAL IV ONE (08:22)
[2019-10-30 08:58] VITALS: TEMP 96.8
[2019-10-30] MEDS ORDERED: NALOXONE 0.4 MG/ML 1 ML VIAL IV PRN (08:59)
[2019-10-30] MEDS ORDERED: HYDROcodone/APAP 5-325MG 1 EACH TAB PO PRN (08:59)
--- NOTE | 2019-10-30 09:44 | P.OP ---
Date of Procedure: 10/30/19 Procedure(s) Performed: PREOPERATIVE DIAGNOSIS: Pancreatic cancer POSTOPERATIVE DIAGNOSIS: Same PROCEDURE: Port-A-Cath placement with fluoroscopic and ultrasound guidance SURGEON: Jordi EBL: Minimal ANESTHESIA: Sedation COMPLICATIONS: None OPERATIVE PROCEDURE: Patient was brought and placed on the operative table in the supine position. The patient was sedated per anesthesia that time. The chest and neck were prepped and draped in usual sterile fashion. The ultrasound probe was used to identify the location of the right internal jugular vein. The skin was localized with lidocaine. The Seldinger needle was advanced into the IJ under ultrasound guidance. The wire was advanced through the needle under fluoroscopic guidance into the superior vena cava. A port pocket was created in the right infraclavicular location. The catheter was tunneled from the wire entrance site to the port pocket. The port was then connected to the catheter. The dilator introducer was threaded over the guidewire. The guidewire and dilator were then removed. The catheter was advanced through the introducer and introducer was then removed. The tip was seen to be in the right atrial junction via fluoroscopy. A picture of the radiograph showing the tip at the radial digital junction was taken. Port was flushed with both saline and a Hep- Lock solution. There was good flow both in and out of the port. The port was sutured in underlying tissues using 3-0 silk sutures. The subcutaneous tissues were reapproximated using 3-0 Vicryl sutures and the skin at both locations using 4-0 Monocryl sutures. Skin glue and sterile dressings then applied. DISPOSITION: Stable to recovery room
--- NOTE | 2019-10-30 09:45 | XR ---
EXAMINATION TYPE: XR chest 1V confirm line [facility] DATE OF EXAM: 10/30/2019 COMPARISON: NONE HISTORY: Check line placement TECHNIQUE: Single frontal view of the chest is obtained. FINDINGS: There is no focal air space opacity, pleural effusion, or pneumothorax seen. The cardiac silhouette size is within normal limits. The osseous structures are intact. The heart is enlarged. Hypertrophic and degenerative change of the spine. Mediport catheter seen the tip overlying the SVC a nd no sizable pneumothorax diffuse osteopenia. Sclerotic density overlying the proximal left humerus may be superficial. IMPRESSION: 1. Tip of the Mediport overlies the SVC with no sizable pneumothorax
[2019-10-30 09:46] LABS: Glucose,Whole Blood 219 mg/dL (75-99)
[2019-10-30 09:51] VITALS: RESP 17
--- NOTE | 2019-10-30 09:59 | FL ---
EXAMINATION TYPE: FL guided central line placemt HISTORY: Fluoroscopy time Impression: 1. Fluoroscopy support provided to the referring physician. 7 seconds provided.
[2019-10-30 10:13] LABS: Glucose,Whole Blood 199 mg/dL (75-99)
[2019-10-30 10:21] VITALS: BP 160/74; PULSE 57
== END 2019-10-30 10:35 | disposition home or self-care (01) ==
LOC: OR 06:05
PROVIDERS: ATTEND Surgery
DX: C25.9 Malignant neoplasm of pancreas, unspecified (principal); I48.91 Unspecified atrial fibrillation; E11.9 Type 2 diabetes mellitus without complications; E78.5 Hyperlipidemia, unspecified; I10 Essential (primary) hypertension; E07.9 Disorder of thyroid, unspecified; E87.8 Other disorders of electrolyte and fluid balance, not elsewhere classified; Z98.890 Other specified postprocedural states; Z98.42 Cataract extraction status, left eye; F41.9 Anxiety disorder, unspecified; Z82.49 Family history of ischemic heart disease and other diseases of the circulatory system; Z80.1 Family history of malignant neoplasm of trachea, bronchus and lung; Z79.01 Long term (current) use of anticoagulants; Z79.84 Long term (current) use of oral hypoglycemic drugs; Z79.890 Hormone replacement therapy; Z79.899 Other long term (current) drug therapy; Z91.040 Latex allergy status; Z88.0 Allergy status to penicillin; Z91.09 Other allergy status, other than to drugs and biological substances
CPT/HCPCS: 77001; 36561; 76937; C1788; J2250; J2001 ×2; J1644; J1642; J2405; J0690; J3010; J2704

== ENCOUNTER → 2019-11-06 | Outpatient (CLI) | payer MEDICARE, BC ==
--- NOTE | 2019-11-06 14:03 | XR ---
EXAMINATION TYPE: XR chest 2V DATE OF EXAM: 11/06/2019 COMPARISON: 10/30/2019 TECHNIQUE: PA and lateral views submitted. HISTORY: Cough FINDINGS: The lungs are clear and there is no pneumothorax, pleural effusion, or focal pneumonia. Right-sided Mediport catheter seen with tip overlying the SVC. Biapical pleural thickening. The heart is enlarge d. Hypertrophic and degenerative change of the spine. Sclerotic density involving the proximal left h umerus. Arthropathy of the shoulders. IMPRESSION: 1. Cardiomegaly.
== END | disposition home or self-care (01) ==
LOC: RADXRMAIN 13:20
PROVIDERS: ATTEND Nurse Practitioner Adult Health
DX: I11.9 Hypertensive heart disease without heart failure (principal); E11.9 Type 2 diabetes mellitus without complications; C25.0 Malignant neoplasm of head of pancreas; K86.81 Exocrine pancreatic insufficiency
CPT/HCPCS: 71046

== ENCOUNTER → 2020-02-26 | Outpatient (CLI) | payer MEDICARE, BC ==
[2020-02-26 14:16] LABS: African American GFR (CKD) >90 (>60 ml/min/1.73 sqM); Blood Urea Nitrogen 15 mg/dL (7-17); Non-African American GFR(CKD) 84 (>60 ml/min/1.73 sqM)
--- NOTE | 2020-02-27 17:29 | CT ---
EXAMINATION TYPE: CT abdomen w con DATE OF EXAM: 02/26/2020 COMPARISON: CT abdomen 09/29/2019 HISTORY: Pancreatic CA CT DLP: 654 mGycm Automated exposure control for dose reduction was used. TECHNIQUE: Helical acquisition of images was performed from the lung bases through the top of iliac crest to include entire abdomen, utilizing 2 phase pancreas mass protocol. CONTRAST: Performed with Oral Contrast and with IV Contrast, patient injected with 100 mL of Isovue 370. FINDINGS: LUNG BASES: No suspicious pulmonary nodules or mass. No pleural or pericardial effusion. There is mil d bronchiectasis and reticular interstitial coarsening redemonstrated. LIVER: Redemonstrated focus of internal enhancement of the right hepatic dome (3:9) and segment 6 (3: 22). Numerous additional foci of arterial enhancement are seen throughout the liver, which are isoden se on portal venous phase. BILIARY SYSTEM: Redemonstrated common bile duct stent which is likely patent given pneumobilia and no significant intrahepatic biliary ductal dilatation. Gallbladder is nondistended with redemonstrated internal foci of gas. PANCREAS: There is been mild interval decrease in size of the uncinate process hypodense pancreatic m ass measuring up to approximately 3.0 x 2.3 cm (3:27), previously measuring up to 3.0 x 3.0 cm on 09/08 CT comparison. There is decreased circumferential mesenteric haziness involving the superior m esenteric artery versus 09/29/2019, now with abutment of approximately 50% of the right lateral aspect of the superior mesenteric artery, as well as decreased extension along the more proximal SMA. The m esenteric haziness extends to the inferior aspect of the portal confluence and abuts up to 50% of the posterior aspect of the superior mesenteric vein. The mesenteric haziness within the hepatic hilum t hat was previously seen superior to the portal vein is decreased with more normal-appearing fat plane . The main pancreatic duct is more prominent throughout the pancreas versus 09/29/2019 comparison, alt dania still within normal limits for size. There is a redemonstrated 4 x 3 mm hypointense focus of th e posterior pancreatic body (3:22, 19:37, 10:49). SPLEEN: Normal. ADRENALS: Normal. KIDNEYS: Normal. BOWEL: No obstruction or thickening. PERITONEUM: No pneumoperitoneum. No free fluid. LYMPH NODES: No lymphadenopathy. Nonenlarged mesenteric lymph nodes in the region of the pancreas ar e unchanged. VASCULATURE: No abdominal aortic aneurysm. MUSCULOSKELETAL: No aggressive osseous destructive lesions. Degenerative changes of the spine. IMPRESSION: 1. Interval decrease in size of uncinate process pancreatic mass measuring 3.0 x 2.3 cm, previously 3 .0 x 3.0 cm on 09/29/2019 comparison. There is decreased extension along the superior mesenteric arter y and hepatic hilum. Approximately 50% abutment of the superior mesenteric artery and superior mesent sara vein seen on current exam. 2. Redemonstrated 0.4 cm hypodense focus of the posterior pancreatic body may represent branch ductal IPMN versus interdigitated fat. Attention on follow-up imaging. 3. Numerous arterial enhancing foci throughout the liver, with normal portal venous appearance, likel y represents transient hepatic attenuation difference.
== END | disposition home or self-care (01) ==
LOC: RADCTMAIN 13:31
PROVIDERS: ATTEND Internal Medicine Hematology & Oncology
DX: C25.0 Malignant neoplasm of head of pancreas (principal); Z88.0 Allergy status to penicillin
CPT/HCPCS: 82565; 84520; 74160; 36415; Q9967